=== PATIENT | female | born 2000 | race Caucasian/White ===

== ENCOUNTER 2021-03-19 19:44 | Emergency (ER) | payer OTHER | END 2021-03-19 19:55 | disposition left against medical advice (07) | LOC: MW.ED 19:44 | DX: Z53.21 Procedure and treatment not carried out due to patient leaving prior to being seen by health care provider (principal) ==

== ENCOUNTER 2022-02-12 20:04 | Emergency (ER) | payer OTHER | END 2022-02-12 20:27 | disposition home or self-care (01) | LOC: MW.ED 20:04 | DX: Z77.21 Contact with and (suspected) exposure to potentially hazardous body fluids (principal) | CPT/HCPCS: 36415; 86803; 87340; 87389; 99283 ==